=== PATIENT | male | born 1970 | race Caucasian/White ===

== ENCOUNTER 2018-10-02 10:09 | Emergency (ER) | payer SELFPAY ==
[~2018-10-02] VITALS: Ht 165.1 cm; Wt 59.1 kg
[2018-10-02] MEDS ORDERED: METHOCARBAMOL 500 MG TABLET PO ONE (12:30)
[2018-10-02] MEDS ORDERED: IBUPROFEN 600 MG TABLET PO ONE (12:30)
[2018-10-02 13:32] VITALS: BP 128/77
== END 2018-10-02 13:56 | disposition home or self-care (01) ==
LOC: EMS 10:11
DX: S00.33XA Contusion of nose, initial encounter (principal); R07.89 Other chest pain; R03.0 Elevated blood-pressure reading, without diagnosis of hypertension; V43.52XA Car driver injured in collision with other type car in traffic accident, initial encounter; Y93.89 Activity, other specified; Y92.89 Other specified places as the place of occurrence of the external cause; Y99.8 Other external cause status
CPT/HCPCS: 70160